=== PATIENT | female | born 1945 | race Caucasian/White ===

== ENCOUNTER 2016-09-23 17:29 | Emergency (ER) | payer MEDICARE ==
[2016-09-23 17:48] VITALS: BP 157/82
--- NOTE | 2016-09-23 18:15 | UC ---
Complaint Female HPI - HPI Summary HPI Summary: The patient comes in today for: 1. Urinary frequency, Urinary urgency, but no dysuria; Onset: 1 week ago. Palliative/provocative: Nothing makes her symptoms better or worse. Quality: No dysuria or lower back pain. Region: Severity: 0/10 Time: Comes and goes. Associated symptoms: Last UTI: 40 years ago. Recent antibiotics: None. * - History Of Current Complaint Chief Complaint: UCGU Stated Complaint: POSS UTI Time Seen by Provider: 09/23/16 18:09 - Allergies/Home Medications Allergies/Adverse Reactions: Allergies Allergy/AdvReac Type Severity Reaction Status Date / Time Lisinopril Allergy Coughing Verified 09/23/16 17:48 Penicillins [PCN] Allergy Unknown Verified 09/23/16 17:48 Reaction Details Home Medications: Home Medications Apixaban* [Eliquis*] 5 mg PO DAILY 09/23/16 [History Confirmed 09/23/16] PMH/Surg Hx/FS Hx/Imm Hx Previously Healthy: No Endocrine History Of: Denies: Diabetes, Thyroid Disease, Hyperthyroidism, Hypothyroidism, Dyslipidemia Cardiovascular History Of: Reports: Cardiac Disorders, Hypertension, Pacemaker/ ICD, Atrial Fibrillation Denies: Myocardial Infarction, Congestive Heart Failure, Deep Vein Thrombosis , Bleeding Disorders Respiratory History Of: Denies: COPD, Asthma, Bronchitis, Pneumonia, Pulmonary Embolism GI/ History Of: Denies: Gastroesophageal Reflux, Ulcer, Gastrointestinal Bleed, Gall Bladder Disease, Kidney Stones, Diverticulitis, Renal Disease, Urosepsis Neurological History Of: Denies: TIA, CVA, Dementia, Seizures, Migraine Psychological History Of: Denies: Anxiety, Depression, Bipolar Disorder, Schizophrenia, Post Traumatic Stress Disorder Cancer History Of: Denies: Lung Cancer, Colorectal Cancer, Breast Cancer, Prostate Cancer, Cervical Cancer Other History Of: Anticoagulant Therapy - Eliquis Negative For: HIV, Hepatitis B, Hepatitis C - Surgical History Surgical History: Yes Surgery Procedure, Year, and Place: gastric bypass 1996 - Family History Known Family History: Positive: Cardiac Disease - Father had "hole in heart.", Hypertension - Social History Occupation: Retired Alcohol Use: None Substance Use Type: None Smoking Status (MU): Never Smoked Tobacco Review of Systems Constitutional: Negative Skin: Negative Eyes: Negative ENT: Negative Respiratory: Negative Cardiovascular: Negative Gastrointestinal: Negative Genitourinary: Dysuria, Frequency, Urgency Motor: Negative All Other Systems Reviewed And Are Negative: Yes Physical Exam Triage Information Reviewed: Yes Appearance: Well-Appearing, No Pain Distress, Well-Nourished Vital Signs: Initial Vital Signs Temp 97.4 F 09/23/16 17:39 Pulse 62 09/23/16 17:39 Resp 20 09/23/16 17:39 BP 157/82 09/23/16 17:39 Pulse Ox 97 09/23/16 17:39 Vital Signs Reviewed: Yes Eyes: Positive: Conjunctiva Clear. Negative: Discharge ENT: Positive: Hearing grossly normal. Negative: Pharyngeal erythema, Nasal congestion, Nasal drainage, TM bulging, TM dull, TM red, Tonsillar swelling, Tonsillar exudate Dental: Negative: Gross Decay/Caries @, Dental Fracture @ Neck: Positive: Supple, Nontender, No Lymphadenopathy. Negative: Nuchal Rigidity Respiratory: Positive: Lungs clear, No respiratory distress, No accessory muscle use. Negative: Crackles, Wheezing Cardiovascular: Positive: RRR, No Murmur Abdomen Description: Positive: Nontender, No Organomegaly, Soft. Negative: CVA Tenderness (R), CVA Tenderness (L), Distended, Guarding Musculoskeletal: Positive: Strength Intact, ROM Intact, No Edema Neurological: Positive: Alert, Muscle Tone Normal Psychological: Negative: Age Appropriate Behavior, Consolable Skin: Negative: rashes, breakdown Diagnostics - Laboratory Diagnostic Studies Completed/Ordered: Urine: Specific gravity: 1.025. WBC: trace. Nitriate: (+). Blood: 2+. Protein: 1+. Glucose: (-) Complaint Female Dx - Differential Dx/Diagnosis Provider Diagnoses: Urinary tract infection. Discharge - Discharge Plan Condition: Stable Disposition: HOME Patient Education Materials: Urinary Tract Infection in Women (ED) Referrals: Paul Atkins MD [Primary Care Provider] - If Needed
== END 2016-09-23 18:45 | disposition home or self-care (01) ==
LOC: UCEAST 17:29
DX: N39.0 Urinary tract infection, site not specified (principal); Z88.0 Allergy status to penicillin; Z88.8 Allergy status to other drugs, medicaments and biological substances; Z95.0 Presence of cardiac pacemaker; I48.91 Unspecified atrial fibrillation; Z79.01 Long term (current) use of anticoagulants; Z98.84 Bariatric surgery status
CPT/HCPCS: 81003; 87077; 87086; 87186; 99212; G0463

== ENCOUNTER 2017-02-25 14:37 | Emergency (ER) | payer MEDICARE ==
[2017-02-25] MEDS ORDERED: Morphine INJ* 4 MG/ML 1 ML CARPUJECT IV ONE (16:43)
[2017-02-25] MEDS ORDERED: Ondansetron INJ* 2 MG/ML VIAL IV ONE (16:43)
--- NOTE | 2017-02-25 17:33 | RAD ---
HISTORY: Pain, fall, right shoulder pain COMPARISONS: None relevant VIEWS: 5, Frontal internal rotation, external rotation, outlet, and axillary views of the right shoulder FINDINGS: BONE DENSITY: There is diffuse osteopenia. BONES: There is a comminuted angulated and somewhat impacted fracture of the surgical neck of the right humerus JOINTS: There is no arthropathy. ALIGNMENT: There is no dislocation. SOFT TISSUES: Unremarkable. OTHER FINDINGS: None. IMPRESSION: RIGHT PROXIMAL HUMERUS FRACTURE.
--- NOTE | 2017-02-25 17:37 | RAD ---
HISTORY: Head contusion COMPARISONS: February 12, 2011 TECHNIQUE: Multiple contiguous axial CT scans were obtained of the head without intravenous contrast. FINDINGS: HEMORRHAGE/INFARCT: There is no hemorrhage or acute infarct. MASSES/SHIFT: There is no mass or shift. EXTRA-AXIAL SPACES: There are no extra-axial fluid collections. SULCI AND VENTRICLES: The sulci and ventricles are normal in size and position for the patient's stated age. CEREBRUM: There are no focal parenchymal abnormalities. BRAINSTEM: There are no focal parenchymal abnormalities. CEREBELLUM: There are no focal parenchymal abnormalities. VESSELS: The vessels are grossly normal. PARANASAL SINUSES: The paranasal sinuses are clear. ORBITS: The orbits are unremarkable. BONES AND SOFT TISSUE: No bone or soft tissue abnormalities are noted. OTHER: None IMPRESSION: NO ACUTE INTRACRANIAL PATHOLOGY.
--- NOTE | 2017-02-25 19:03 | ED ---
Donna Jara Edward, scribed for Garland Zhang MD on 02/25/17 at 1506 . Upper Extremity Pain - HPI Summary HPI Summary: 71 y/o female ELIUD c/o immediate onset R shoulder pain s/p fall from standing height earlier today. The pain is aggravated with movement of the R arm. The pain was rated 7/10 at triage, described as an aching pain. Pt was collecting cans and bottles and opened the door into a room with lots of furniture. The pt slipped; her mouth hit a chair and her head hit the floor. Associated sx: mild lip swelling. Sx R knee replacement. - History of Current Complaint Chief Complaint: EDExtremityUpper Stated Complaint: RIGHT SHOULDER PAIN Time Seen by Provider: 02/25/17 14:59 Hx Obtained From: Patient Onset/Duration: Started Hours Ago, Still Present Timing: Constant Severity Initially: Severe Severity Currently: Severe Pain Location: Shoulder - R shoulder Aggravating Factor(s): Movement Alleviating Factor(s): Nothing Associated Signs & Symptoms: Positive: Swelling - lip - Allergies/Home Medications Allergies/Adverse Reactions: Allergies Allergy/AdvReac Type Severity Reaction Status Date / Time Lisinopril Allergy Coughing Verified 02/25/17 14:56 Penicillins [PCN] Allergy Unknown Verified 02/25/17 14:56 Reaction Details PMH/Surg Hx/FS Hx/Imm Hx Previously Healthy: No Endocrine/Hematology History: Reports: Hx Anticoagulant Therapy - Eliquis Denies: Hx Diabetes, Hx Thyroid Disease Cardiovascular History: Reports: Hx Atrial Fibrillation, Hx Hypertension, Hx Pacemaker/ICD Denies: Hx Congestive Heart Failure, Hx Deep Vein Thrombosis, Hx Myocardial Infarction Respiratory History: Denies: Hx Asthma, Hx Chronic Obstructive Pulmonary Disease (COPD), Hx Lung Cancer, Hx Pneumonia, Hx Pulmonary Embolism GI History: Denies: Hx Gall Bladder Disease, Hx Gastrointestinal Bleed, Hx Ulcer, Hx Urosepsis History: Denies: Hx Kidney Stones, Hx Renal Disease Neurological History: Denies: Hx Dementia, Hx Migraine, Hx Seizures, Hx Transient Ischemic Attacks (TIA) Psychiatric History: Denies: Hx Anxiety, Hx Depression, Hx Schizophrenia, Hx Bipolar Disorder - Cancer History Hx Chemotherapy: No Hx Radiation Therapy: No - Surgical History Surgery Procedure, Year, and Place: gastric bypass 1996 Infectious Disease History: No Infectious Disease History: Denies: Hx Clostridium Difficile, Hx Hepatitis, Hx Human Immunodeficiency Virus (HIV), Hx of Known/Suspected MRSA, Hx Shingles, Hx Tuberculosis, Hx Known/ Suspected VRE, Hx Known/Suspected VRSA, History Other Infectious Disease, Traveled Outside the [place] in Last 30 Days - Family History Known Family History: Positive: Cardiac Disease - Father had "hole in heart.", Hypertension - Social History Alcohol Use: None Hx Substance Use: No Substance Use Type: Reports: None Hx Tobacco Use: No Smoking Status (MU): Never Smoked Tobacco Review of Systems Constitutional: Negative Eyes: Negative ENT: Negative Cardiovascular: Negative Respiratory: Negative Gastrointestinal: Negative Genitourinary: Negative Positive: Arthralgia - R shoulder pain, Edema - Lip swelling Skin: Negative Neurological: Negative Psychological: Normal All Other Systems Reviewed And Are Negative: Yes Physical Exam - Summary Physical Exam Summary: VITAL SIGNS: Reviewed. GENERAL: ~Patient is a well-developed and nourished female who is lying comfortable in the stretcher. ~Patient is not in any acute respiratory distress. HEAD AND FACE: No signs of trauma. ~No ecchymosis, hematomas or skull depressions. No sinus tenderness. EYES: PERRLA, EOMI x 2, No injected conjunctiva, no nystagmus. EARS: Hearing grossly intact. Ear canals and tympanic membranes are within normal limits. MOUTH: Oropharynx within normal limits. NECK: Supple, trachea is midline, no adenopathy, no JVD, no carotid bruit, no c- spine tenderness, neck with full ROM. CHEST: Symmetric, no tenderness at palpation LUNGS: Clear to auscultation bilaterally. No wheezing or crackles. CVS: Regular rate and rhythm, S1 and S2 present, no murmurs or gallops appreciated. ABDOMEN: Soft, non-tender. No signs of distention. No rebound no guarding, and no masses palpated. Bowel sounds are normal. EXTREMITIES: Decreased ROM secondary to tenderness @ the R shoulder. NEURO: Alert and oriented x 3. No acute neurological deficits. Speech is normal and follows commands. SKIN: Dry and warm Triage Information Reviewed: Yes Vital Signs On Initial Exam: Initial Vitals Temp Pulse Resp BP Pulse Ox 97.7 F 62 20 141/98 95 02/25/17 14:55 02/25/17 14:55 02/25/17 14:55 02/25/17 14:55 02/25/17 14:55 Vital Signs Reviewed: Yes - [place] Coma Scale Coma Scale Total: 15 Diagnostics - Vital Signs Vital Signs Temp Pulse Resp BP Pulse Ox 02/25/17 14:55 97.7 F 62 20 141/98 95 - Laboratory Lab Statement: Any lab studies that have been ordered have been reviewed, and results considered in the medical decision making process. - Radiology SHOULDER XR Xray Interpretation: Positive (See Comments) - RIGHT PROXIMAL HUMERUS FRACTURE. ED PHYSICIAN REVIEWS AND AGREES Radiology Interpretation Completed By: Radiologist - CT BRAIN CT CT Interpretation: No Acute Changes - NO ACUTE INTRACRANIAL PATHOLOGY. ED PHYSICIAN REVIEWS AND AGREES CT Interpretation Completed By: Radiologist Re-Evaluation - Re-Evaluation 1 Re-Evaluation Time: 18:30 Comment: Discuss plan of care Course/Dx - Course Assessment/Plan: 71 y/o female BIBA c/o immediate onset R shoulder pain s/p fall from standing height earlier today. The pain is aggravated with movement of the R arm. The pain was rated 7/10 at triage, described as an aching pain. Pt was collecting cans and bottles and opened the door into a room with lots of furniture. The pt slipped; her mouth hit a chair and her head hit the floor. Associated sx: mild lip swelling. Sx R knee replacement. BRAIN CT SHOWS NO ACUTE INTRACRANIAL PATHOLOGY. ED PHYSICIAN REVIEWS AND AGREES. CXR SHOWS RIGHT PROXIMAL HUMERUS FRACTURE. Pt given fentanyl for pain. Since the pt has a proximal humeral fracture the pt will be placed in a shoulder immobilizer. I discussed with Dr. [place] who recommends the pt be d/c with pain medications, and for the pt to call Monday at his office for a same-day appointment. I discussed with the pt, who understands and agrees. The pt is hemodynamically stable, A&Ox3. - Diagnoses Differential Diagnosis/HQI/PQRI: Positive: Bursitis, Contusion, Fracture (Closed ), Strain, Sprain Provider Diagnoses: Humeral head fracture - Physician Notifications Discussed Care of Patient With: Brannon Montana Time Discussed With Above Provider: 18:10 Instructed by Provider To: Other - D/c home, call Monday for f/u at his office Discharge - Discharge Plan Condition: Stable Disposition: HOME Prescriptions: HYDROcodone/ACETAMIN 5-325 MG* [[place] 5-325 TAB*] 1 tab PO Q6H PRN #12 tab MDD 4 PRN Reason: Pain Patient Education Materials: Proximal Humerus Fracture (ED) Referrals: Brannon Montana MD [Medical Doctor] - 2 Days (PLEASE CALL HIS OFFICE TO SCHEDULE A SAME-DAY APPOINTMENT ON 02/27/17) The documentation as recorded by the Donna rivas Edward accurately reflects the service I personally performed and the decisions made by , Garland Zhang MD.
[2017-02-25] MEDS ORDERED: HYDROcodone/ACETAMIN 5-325 MG* 1 TAB PO ONE (19:20)
[2017-02-25 19:30] VITALS: BP 123/66
== END 2017-02-25 19:31 | disposition home or self-care (01) ==
LOC: ED 14:37
DX: S42.301A Unspecified fracture of shaft of humerus, right arm, initial encounter for closed fracture (principal); W01.0XXA Fall on same level from slipping, tripping and stumbling without subsequent striking against object, initial encounter; Y92.9 Unspecified place or not applicable; Z88.0 Allergy status to penicillin; Z79.01 Long term (current) use of anticoagulants; I48.91 Unspecified atrial fibrillation; I10 Essential (primary) hypertension; Z95.810 Presence of automatic (implantable) cardiac defibrillator
CPT/HCPCS: 70450; 96374; 96375; 99282; J2270; J2405

== ENCOUNTER 2020-04-15 20:36 | Inpatient (IN) ==
[2020-04-15 21:47] LABS: ABS Lymphocytes 2.7 10^3/ul (1.0-4.8); ABS Monocytes 0.3 10^3/ul (0-0.8); ABS Neutrophils 3.8 10^3/ul (1.5-7.7); Eosinophil % 0.1 %; Hematocrit 40 % (35-47); Hemoglobin 13.5 g/dL (12.0-16.0); Lymphocyte % 39.6 %; Mean Corpuscular HGB Conc 33 g/dL (31-36); Mean Corpuscular Hemoglobin 28 pg (27-31); Mean Corpuscular Volume 85 fL (80-97); Mean Platelet Volume 8.7 fL (7.4-10.4); Nucleated Red Blood Cells % 0.2; Platelet Count 160 10^3/uL (150-450); Red Blood Count 4.76 10^6 /uL (3.70-4.87); Red Cell Distribution Width 15 % (10-15); White Blood Count 6.8 10^3/uL (3.5-10.8)
[2020-04-15 21:56] LABS: Activated Partial Thrombo Time 37.6 seconds (26.0-38.0); INR 1.63 (0.82-1.09)
[2020-04-15 22:04] LABS: ALT 20 U/L (7-52); AST 45 U/L (13-39); Albumin 3.6 g/dL (3.2-5.2); Albumin/Globulin Ratio 1.3 (1-3); Alkaline Phosphatase 95 U/L (34-104); Anion Gap 9 mmol/L (2-11); BUN/Creatinine Ratio 21.6 (8-20); Blood Urea Nitrogen 22 mg/dL (6-24); C Reactive Protein 194.41 mg/L (<8.01); CO2 Carbon Dioxide 24 mmol/L (22-32); Calcium 8.6 mg/dL (8.6-10.3); Chloride 104 mmol/L (101-111); EGFR African American 64.3 (>60); EGFR Non-African American 53.1 (>60); Globulin 2.7 g/dL (2-4); Glucose 119 mg/dL (70-100); Potassium 4.6 mmol/L (3.5-5.0); Sodium 137 mmol/L (135-145); Total Protein 6.3 g/dL (6.4-8.9)
[2020-04-15 22:05] LABS: Influenza A Molecular Negative (Negative); Influenza B Molecular Negative (Negative); Troponin I 0.01 ng/mL (<0.03)
[2020-04-15 22:05] LABS: Urine Appearance Cloudy; Urine Bilirubin Negative (Negative); Urine Blood Negative (Negative); Urine Color Amber; Urine Glucose Negative (Negative); Urine Ketones Trace (Negative); Urine Nitrite Negative (Negative); Urine Protein 3+(>=500 mg/dL) (Negative); Urine Specific Gravity 1.029 (1.010-1.030); Urine Urobilinogen Negative (Negative)
[2020-04-15 22:45] LABS: Urine Bacteria 1+ (Absent); Urine Red Blood Cell 3+(>10/hpf) (Absent); Urine Squamous Epithelial Cell Present (Absent); Urine White Blood Cell Trace(0-5/hpf) (Absent)
[2020-04-15] MEDS ORDERED: Ondansetron 4 mg VIAL 2 MG/ML 2 ml VIAL IV PRN (23:22)
[2020-04-15] MEDS ORDERED: Remdesivir 5 MG/ML LIQ IV Vial 200 MG in NS 0.9% 250 ml 210 ML IV ONE (23:22)
[2020-04-15 23:23] LABS: Ferritin 137.8 ng/mL (11-307); LDH 337 U/L (140-271)
[2020-04-15] MEDS ORDERED: NS 0.9% 1000 ml BAG 1,000 ML IV SCH (23:30)
[2020-04-16] MEDS ORDERED: Albuterol 2.5mg/3 ml (0.083%) NEB.SOLN INH PRN (04:43)
[2020-04-16 06:40] LABS: ABS Lymphocytes 2.7 10^3/ul (1.0-4.8); ABS Monocytes 0.3 10^3/ul (0-0.8); ABS Neutrophils 3.7 10^3/ul (1.5-7.7); Eosinophil % 0.1 %; Hematocrit 37 % (35-47); Hemoglobin 12.8 g/dL (12.0-16.0); Lymphocyte % 40.4 %; Mean Corpuscular HGB Conc 34 g/dL (31-36); Mean Corpuscular Hemoglobin 29 pg (27-31); Mean Corpuscular Volume 84 fL (80-97); Mean Platelet Volume 8.4 fL (7.4-10.4); Nucleated Red Blood Cells % 0.1; Platelet Count 150 10^3/uL (150-450); Red Blood Count 4.44 10^6 /uL (3.70-4.87); Red Cell Distribution Width 15 % (10-15); White Blood Count 6.8 10^3/uL (3.5-10.8)
[2020-04-16 06:47] LABS: INR 1.56 (0.82-1.09)
[2020-04-16 07:07] LABS: BUN/Creatinine Ratio 20.5 (8-20); Calcium 8.2 mg/dL (8.6-10.3); EGFR African American 54.9 (>60); EGFR Non-African American 45.3 (>60); Potassium 4.2 mmol/L (3.5-5.0)
[2020-04-16] MEDS ORDERED: Furosemide 20 mg/2 ml IV VIAL IV ONE (17:56)
[2020-04-17] MEDS: Remdesivir 5 MG/ML LIQ IV Vial 100 MG in NS 0.9% 250 ml 230 ML IV SCH (04:04)
[2020-04-17 08:52] LABS: ABS Lymphocytes 2.4 10^3/ul (1.0-4.8); ABS Monocytes 0.5 10^3/ul (0-0.8); ABS Neutrophils 4.4 10^3/ul (1.5-7.7); Hematocrit 41 % (35-47); Hemoglobin 13.8 g/dL (12.0-16.0); Lymphocyte % 33.5 %; Mean Corpuscular HGB Conc 34 g/dL (31-36); Mean Corpuscular Hemoglobin 29 pg (27-31); Mean Corpuscular Volume 85 fL (80-97); Mean Platelet Volume 8.5 fL (7.4-10.4); Platelet Count 207 10^3/uL (150-450); Red Blood Count 4.78 10^6 /uL (3.70-4.87); Red Cell Distribution Width 15 % (10-15); White Blood Count 7.3 10^3/uL (3.5-10.8)
[2020-04-17 09:07] LABS: Calcium 8.7 mg/dL (8.6-10.3); EGFR African American 61.5 (>60); EGFR Non-African American 50.8 (>60); Magnesium 2.2 mg/dL (1.9-2.7); Potassium 4.1 mmol/L (3.5-5.0)
[2020-04-17] MEDS ORDERED: Furosemide 40 mg/4 ml IV VIAL IV SLOW PU ONE ×2 (11:53→20:00)
[2020-04-17 18:04] LABS: BUN/Creatinine Ratio 36.9 (8-20); EGFR African American 58.3 (>60); EGFR Non-African American 48.2 (>60); Potassium 4.3 mmol/L (3.5-5.0)
[2020-04-18] MEDS: Remdesivir 5 MG/ML LIQ IV Vial 100 MG in NS 0.9% 250 ml 230 ML IV SCH (03:06)
[2020-04-18 06:43] LABS: BUN/Creatinine Ratio 37.3 (8-20); Calcium 8.7 mg/dL (8.6-10.3); EGFR African American 54.3 (>60); EGFR Non-African American 44.9 (>60); Potassium 4.2 mmol/L (3.5-5.0)
[2020-04-18 10:33] LABS: ABS Lymphocytes 3.8 10^3/ul (1.0-4.8); ABS Monocytes 0.6 10^3/ul (0-0.8); ABS Neutrophils 7.1 10^3/ul (1.5-7.7); Hematocrit 41 % (35-47); Hemoglobin 13.5 g/dL (12.0-16.0); Lymphocyte % 33.1 %; Mean Corpuscular HGB Conc 33 g/dL (31-36); Mean Corpuscular Hemoglobin 28 pg (27-31); Mean Corpuscular Volume 84 fL (80-97); Mean Platelet Volume 8.4 fL (7.4-10.4); Platelet Count 278 10^3/uL (150-450); Red Blood Count 4.85 10^6 /uL (3.70-4.87); Red Cell Distribution Width 15 % (10-15); White Blood Count 11.5 10^3/uL (3.5-10.8)
[2020-04-18] MEDS ORDERED: Lactated Ringers 500 ml BAG 500 ML IV ONE (12:03)
[2020-04-18] MEDS ORDERED: Lactated Ringers 1000 ml BAG 1,000 ML IV ONE (12:04)
[2020-04-18] MEDS ORDERED: Magnesium Sulfate 2 gm BAG 2 GM/50 ML BAG IVPB ONE (17:00)
[2020-04-19] MEDS: Remdesivir 5 MG/ML LIQ IV Vial 100 MG in NS 0.9% 250 ml 230 ML IV SCH (03:13)
[2020-04-19 03:34] LABS: ABS Monocytes 0.6 10^3/ul (0-0.8); ABS Neutrophils 6.6 10^3/ul (1.5-7.7); Hematocrit 39 % (35-47); Hemoglobin 13.1 g/dL (12.0-16.0); Lymphocyte % 35.3 %; Mean Corpuscular HGB Conc 34 g/dL (31-36); Mean Corpuscular Hemoglobin 28 pg (27-31); Mean Corpuscular Volume 84 fL (80-97); Mean Platelet Volume 8.2 fL (7.4-10.4); Platelet Count 302 10^3/uL (150-450); Red Blood Count 4.65 10^6 /uL (3.70-4.87); Red Cell Distribution Width 15 % (10-15); White Blood Count 11.3 10^3/uL (3.5-10.8)
[2020-04-19 03:52] LABS: BUN/Creatinine Ratio 42.3 (8-20); Calcium 8.2 mg/dL (8.6-10.3); EGFR African American 68.1 (>60); EGFR Non-African American 56.3 (>60); Magnesium 2.5 mg/dL (1.9-2.7); Potassium 4.2 mmol/L (3.5-5.0)
[2020-04-20] MEDS: Remdesivir 5 MG/ML LIQ IV Vial 100 MG in NS 0.9% 250 ml 230 ML IV SCH (03:44)
[2020-04-20 07:56] LABS: ABS Lymphocytes 4.7 10^3/ul (1.0-4.8); ABS Monocytes 0.5 10^3/ul (0-0.8); ABS Neutrophils 6.8 10^3/ul (1.5-7.7); Hematocrit 38 % (35-47); Hemoglobin 12.6 g/dL (12.0-16.0); Lymphocyte % 39.4 %; Mean Corpuscular HGB Conc 33 g/dL (31-36); Mean Corpuscular Hemoglobin 28 pg (27-31); Mean Corpuscular Volume 84 fL (80-97); Platelet Count 298 10^3/uL (150-450); Red Blood Count 4.49 10^6 /uL (3.70-4.87); Red Cell Distribution Width 15 % (10-15)
[2020-04-20 08:08] LABS: BUN/Creatinine Ratio 40.2 (8-20); Calcium 8.1 mg/dL (8.6-10.3); EGFR African American 77.2 (>60); EGFR Non-African American 63.8 (>60); Potassium 4.1 mmol/L (3.5-5.0)
[2020-04-21] MEDS: Remdesivir 5 MG/ML LIQ IV Vial 100 MG in NS 0.9% 250 ml 230 ML IV SCH (02:45)
[2020-04-21 05:46] LABS: Hematocrit 38 % (35-47); Hemoglobin 12.8 g/dL (12.0-16.0); Mean Corpuscular HGB Conc 33 g/dL (31-36); Mean Corpuscular Hemoglobin 28 pg (27-31); Mean Corpuscular Volume 84 fL (80-97); Mean Platelet Volume 7.8 fL (7.4-10.4); Platelet Count 287 10^3/uL (150-450); Red Blood Count 4.55 10^6 /uL (3.70-4.87); Red Cell Distribution Width 14 % (10-15); White Blood Count 11.7 10^3/uL (3.5-10.8)
[2020-04-21 06:10] LABS: BUN/Creatinine Ratio 37.1 (8-20); EGFR African American 75.2 (>60); EGFR Non-African American 62.2 (>60)
[2020-04-21 06:27] LABS: ABS Lymphocytes 4.6 10^3/ul (1.0-4.8); ABS Monocytes 0.4 10^3/ul (0-0.8); ABS Neutrophils 6.7 10^3/ul (1.5-7.7); Eosinophil % 0.2 %; Lymphocyte % 39.5 %; Nucleated Red Blood Cells % 0.1
[2020-04-22] MEDS: Remdesivir 5 MG/ML LIQ IV Vial 100 MG in NS 0.9% 250 ml 230 ML IV SCH (03:36)
[2020-04-22 06:03] LABS: BUN/Creatinine Ratio 36.7 (8-20); Calcium 8.2 mg/dL (8.6-10.3); EGFR African American 67.3 (>60); EGFR Non-African American 55.6 (>60)
[2020-04-23] MEDS: Remdesivir 5 MG/ML LIQ IV Vial 100 MG in NS 0.9% 250 ml 230 ML IV SCH (05:11)
[2020-04-23 06:44] LABS: BUN/Creatinine Ratio 34.9 (8-20); Calcium 8.1 mg/dL (8.6-10.3); EGFR African American 78.3 (>60); EGFR Non-African American 64.7 (>60); Potassium 4.2 mmol/L (3.5-5.0)
[2020-04-23] MEDS: Nystatin TOP POWDER 15 GM BTL TOPICAL SCH ×2 (15:37→22:02)
[2020-04-24] MEDS: Remdesivir 5 MG/ML LIQ IV Vial 100 MG in NS 0.9% 250 ml 230 ML IV SCH (04:19)
[2020-04-24 07:03] LABS: Albumin 2.9 g/dL (3.2-5.2); Albumin/Globulin Ratio 1.3 (1-3); BUN/Creatinine Ratio 41.9 (8-20); EGFR African American 71.5 (>60); EGFR Non-African American 59.1 (>60); Globulin 2.2 g/dL (2-4); Indirect Bilirubin 0.3 mg/dL (0.3-1.0); Potassium 3.9 mmol/L (3.5-5.0); Total Bilirubin 0.4 mg/dL (0.2-1.0); Total Protein 5.1 g/dL (6.4-8.9)
[2020-04-24] MEDS: Nystatin TOP POWDER 15 GM BTL TOPICAL SCH ×3 (08:47→23:45)
[2020-04-25] MEDS: Remdesivir 5 MG/ML LIQ IV Vial 100 MG in NS 0.9% 250 ml 230 ML IV SCH (03:22)
[2020-04-25] MEDS: Nystatin TOP POWDER 15 GM BTL TOPICAL SCH ×3 (10:00→21:36)
[2020-04-25 11:57] LABS: Magnesium 1.9 mg/dL (1.9-2.7)
[2020-04-26 07:06] LABS: BUN/Creatinine Ratio 39.1 (8-20); Calcium 8.3 mg/dL (8.6-10.3); EGFR African American 72.4 (>60); EGFR Non-African American 59.8 (>60); Potassium 4.1 mmol/L (3.5-5.0)
[2020-04-26] MEDS: Nystatin TOP POWDER 15 GM BTL TOPICAL SCH ×3 (08:08→20:46)
[2020-04-27] MEDS: Nystatin TOP POWDER 15 GM BTL TOPICAL SCH ×3 (08:03→21:00)
[2020-04-28 07:07] LABS: Calcium 8.4 mg/dL (8.6-10.3); Potassium 4.2 mmol/L (3.5-5.0)
[2020-04-28 07:12] LABS: BUN/Creatinine Ratio 32.9 (8-20); EGFR African American 79.3 (>60); EGFR Non-African American 65.6 (>60)
[2020-04-28 10:33] VITALS: BP 123/69
== END 2020-04-28 11:55 | disposition home or self-care (01) | DRG 177 ==
LOC: ED 20:36 → MED 23:18 → ICU 04-17 03:02 → MED 04-17 16:17
PROVIDERS: ADMIT Internal Medicine; ATTEND Internal Medicine